=== PATIENT | male | born 1965 | race Caucasian/White ===

== ENCOUNTER 2017-02-01 14:07 | Emergency (ER) | payer OTHER ==
[~2017-02-01] VITALS: Ht 188 cm; Wt 193.2 kg
[~2017-02-01 14:07] MED LIST: ALLOPURINOL300 MG; ASPIR-TRIN325 M1 PO; ASPIRIN81 M2 PO; BACTRIM,SEPT1 TABLET PO; CARISOPRODOL350 MG PO; CIPRO500 MG PO; COLACE100 MG PO; COLCHICINE; COLCHICINE,COL0.6 MG PO; COLCRYS 0.6 MG; DULOXETINE HCL30 MG PO; FLOMAX0.4 MG PO; HABITROL,NICODE21 MG TD; HYDROCHLOROTHIA25 MG PO; HYDROCODON-ACE1 EAC7 PO; INDOCIN; INDOCIN25 MG PO; INDOCIN50 M1; INDOCIN50 MG PO; INDOMETHACIN50 MG PO; KEFLEX500 MG PO; Keflex PO; LISINOPRIL40 MG PO; LOPID600 MG PO; LORTAB 10/501 TABLET PO; METOPROLOL SUCC25 MG PO; MOBIC7.5 MG PO; NAPROSYN500 MG PO; OXYCODONE HCL10 MG PO; OXYCODONE HCL5 MG PO; OXYCODONE-APAP1 EACH PO; PERCOCET 5/31 TABLET PO; PREDNISONE10 MG PO; PROPRANOLOL; RANITIDINE; RANITIDINE HCL150 M1 PO; TRAMADOL HCL50 MG PO; TYLENOL WITH C1 EACH PO; Tylenol Regular Stre PO; VENTOLIN HFA18 GM IH; VICODIN 5-3001 EACH PO; ZITHROMAX Z-PA250 MG PO; ZOFRAN4 MG PO; ZYLOPRIM300 MG PO; ZYLOPRIM50 MG PO; Zestril,Prinivil PO
[2017-02-01 16:13] VITALS: BP 167/109
== END 2017-02-01 16:15 | disposition home or self-care (01) ==
LOC: EME 14:07 → EXP 15:49
DX: S82.832A Other fracture of upper and lower end of left fibula, initial encounter for closed fracture (principal); S90.411A Abrasion, right great toe, initial encounter; W01.0XXA Fall on same level from slipping, tripping and stumbling without subsequent striking against object, initial encounter; Y93.E1 Activity, personal bathing and showering; I10 Essential (primary) hypertension; M10.9 Gout, unspecified; Z82.49 Family history of ischemic heart disease and other diseases of the circulatory system; E66.3 Overweight; Z68.43 Body mass index [BMI] 50.0-59.9, adult
CPT/HCPCS: 73564; 99281; 99284

== ENCOUNTER 2017-07-31 22:03 | Emergency (ER) | payer OTHER ==
[~2017-07-31] VITALS: Ht 188 cm; Wt 190.8 kg
[2017-07-31 22:18] LABS: HEMATOCRIT 45.3 % (38.0-50.0); MCH 28.6 PG (29.0-34.0); MCHC 32.7 G/DL (30.0-36.0); MCV 87.5 FL (86-99); MEAN PLAT.VOLUME 9.4 uM^3 (9.0-12.4); PLATELET COUNT 306 K/uL (156-360); RBC DIS.WIDTH-CV 15.1 % (11.8-14.6); RBC DIS.WIDTH-SD 48.2 % (39-53); RED BLOOD COUNT 5.18 M/uL (4.00-5.50); WHITE BLOOD COUNT 14.3 K/uL (4.1-10.2)
[2017-07-31 22:31] LABS: CHLORIDE 101 mEq/L (99-109); POTASSIUM 4.3 mEq/L (3.7-5.4); SODIUM 140 mEq/L (136-147)
[2017-07-31 22:33] LABS: ADD MIUA? YES; BILIRUBIN NEGATIVE; BLOOD MODERATE; COLOR YELLOW ((YELLOW)); GLUCOSE (STRIP) NEGATIVE; KETONES NEGATIVE; LEUKOCYTES NEGATIVE; NITRITE NEGATIVE; PROTEIN (STRIP) 30; SPECIFIC GRAVITY 1.015 (1.000-1.030); UROBILINOGEN 0.2 MG/DL (0.2-1.0)
[2017-07-31 22:33] LABS: GLUCOSE 107 mg/dL (70-99)
[2017-07-31 22:35] LABS: ANION GAP 12 MEQ/L (2-14); TOTAL BILIRUBIN 0.3 mg/dL (0.0-1.0)
[2017-07-31 22:37] LABS: BACTERIA NONE SEEN /HPF; EPITHELIAL CELLS RARE /HPF; MUCUS TRACE /LPF; RED BLOOD CELLS 15-20 /HPF (0-5); UCUL ADDED? NO; WHITE BLOOD CELLS 0-5 /HPF (0-5)
[2017-07-31 22:37] LABS: ALKALINE PHOSPHATASE 109 IU/L (3-129); GFR ESTIMATE (CALCULATED) > 59 mL/min/ (58.99-99999)
[2017-07-31 22:38] LABS: UREA NITROGEN (BUN) 25 mg/dL (9-23)
[2017-07-31 22:58] LABS: LIPASE 30 U/L (1.0-51.0)
[2017-08-01] MEDS ORDERED: BENTYL20 MG PO (00:38)
[2017-08-01] MEDS ORDERED: ZOFRAN ODT4 MG PO (00:38)
[2017-08-01] MEDS ORDERED: PERCOCET 5/31 TABLET PO (00:38)
[2017-08-01 00:52] VITALS: BP 130/84
== END 2017-08-01 00:54 | disposition home or self-care (01) ==
LOC: EME 22:03
DX: R19.7 Diarrhea, unspecified (principal); R10.31 Right lower quadrant pain; D72.829 Elevated white blood cell count, unspecified; R11.0 Nausea; R16.0 Hepatomegaly, not elsewhere classified; I10 Essential (primary) hypertension; F17.200 Nicotine dependence, unspecified, uncomplicated
CPT/HCPCS: 74177; 80053; 81003; 83690; 85027; 99281; 99285; J2270; J2405; J7030

== ENCOUNTER → 2018-03-10 | Outpatient (CLI) | payer OTHER ==
[~2018-03-10] MED LIST changes: +BENTYL20 MG PO; +ZOFRAN ODT4 MG PO
== END | disposition home or self-care (01) ==
DX: Z01.818 Encounter for other preprocedural examination (principal); M17.12 Unilateral primary osteoarthritis, left knee; M25.562 Pain in left knee; M25.662 Stiffness of left knee, not elsewhere classified; R26.2 Difficulty in walking, not elsewhere classified; M62.81 Muscle weakness (generalized); Z74.1 Need for assistance with personal care
CPT/HCPCS: 97161 GP; 97165 GO; 97530 GP; 97535 GO

== ENCOUNTER 2018-03-29 22:46 | Inpatient (IN) | payer OTHER ==
[~2018-03-29] VITALS: Ht 188 cm; Wt 187.0 kg
[~2018-03-29 22:46] MED LIST changes: +COLCRYS0.6 MG PO; +DIPROLENE 0.05%15 GM TP; +LO-DOSE ASPIRIN81 M2 PO; +NORVASC10 MG PO; +OMEPRAZOLE40 M1 PO; +VIAGRA100 MG PO; +ZOLOFT100 MG PO
[2018-03-30 12:07] VITALS: BP 163/70
[2018-03-30 18:44] LABS: HEMATOCRIT 44.8 % (38.0-50.0); HEMOGLOBIN 14.2 G/DL (12.5-16.6); MCH 27.5 PG (29.0-34.0); MCHC 31.7 G/DL (30.0-36.0); MCV 86.7 FL (86-99); PLATELET COUNT 240 K/uL (156-360); RBC DIS.WIDTH-CV 15.3 % (11.8-14.6); RBC DIS.WIDTH-SD 48.5 % (39-53); RED BLOOD COUNT 5.17 M/uL (4.00-5.50); WHITE BLOOD COUNT 10.5 K/uL (4.1-10.2)
[2018-03-30 19:50] VITALS: BP 132/81
[2018-03-31] VITALS: BP 156/88
[2018-03-31 04:10] VITALS: BP 162/88
[2018-03-31 06:21] LABS: HEMATOCRIT 40.3 % (38.0-50.0); HEMOGLOBIN 12.5 G/DL (12.5-16.6); MCV 86.9 FL (86-99)
[2018-03-31 06:46] LABS: CHLORIDE 102 MEQ/L (99-109); CREATININE 1.1 MG/DL (0.6-1.3); GFR ESTIMATE (CALCULATED) > 59 mL/min/ (58.99-99999); GLUCOSE 121 mg/dL (70-99); POTASSIUM 4.5 MEQ/L (3.7-5.4); SODIUM 139 MEQ/L (136-147); UREA NITROGEN (BUN) 19 mg/dL (9-23)
[2018-03-31 07:54] VITALS: BP 144/79
[2018-03-31 11:30] VITALS: BP 137/75
[2018-03-31 15:48] VITALS: BP 141/81
[2018-03-31 20:12] VITALS: BP 155/78
[2018-04-01] VITALS: BP 148/76
[2018-04-01 03:30] VITALS: BP 140/86
[2018-04-01 06:28] LABS: HEMATOCRIT 37.6 % (38.0-50.0); HEMOGLOBIN 11.9 G/DL (12.5-16.6); MCV 84.9 FL (86-99)
[2018-04-01 08:00] VITALS: BP 133/77
[2018-04-01] MEDS ORDERED: SENNA PLUS TAB1 EACH PO (08:53)
[2018-04-01] MEDS ORDERED: ELIQUIS2.5 MG PO (08:55)
[2018-04-01] MEDS ORDERED: OXYCODONE HCL5 MG PO (08:55)
[2018-04-01 12:11] VITALS: BP 140/64
[2018-04-01 15:56] VITALS: BP 152/86
== END 2018-04-01 18:00 | DRG 470 ==
LOC: ENRESERV 22:46 → 2SOUTH 03-30 10:06 → 3WEST 03-30 11:11 → 2SOUTH 03-30 12:11 → 3WEST 03-30 19:17
PROVIDERS: Orthopaedic Surgery
PROC: 0SRD0J9 Replacement of Left Knee Joint with Synthetic Substitute, Cemented, Open Approach (ICD-10-PCS; principal; 2018-03-30)
DX: M17.12 Unilateral primary osteoarthritis, left knee (principal); I10 Essential (primary) hypertension; G47.33 Obstructive sleep apnea (adult) (pediatric); E55.9 Vitamin D deficiency, unspecified; G89.29 Other chronic pain; M10.9 Gout, unspecified; K21.9 Gastro-esophageal reflux disease without esophagitis; Z87.891 Personal history of nicotine dependence
CPT/HCPCS: 73560; 80048; 85014; 85018; 85027; C1713; J0690; J1170; J2250; J2405; J2795; J7050; S0020